=== PATIENT | male | born 2000 | race Caucasian/White ===

== ENCOUNTER 2019-10-19 13:02 | Emergency (ER) | payer BC ==
[2019-10-19 13:39] VITALS: BP 104/55
--- NOTE | 2019-10-19 14:23 | UC ---
Back Pain HPI - HPI Summary HPI Summary: 19 [address][age] sebastian male, studnet, presetns with left sided back pain x 1 week, getting worse. Woke up Sunday morning, thought he "slept wrong", but continued to hurt and getting worse= worse with stepping on left leg/ lifting leg/ steps, getting out of bed. Better with lying down, sitting OK. no numbness/ tingling, no decrease in strength/ motor. no problems with urination, no drainage from penis. no fever, chills. no h/o kidney stones/ problems. + working out, did not work out prior to injury. no radiating pain. no lightheadedness/ dizziness. no prior injuries, trauma/ surgeries prior. no truama/ injruy this time. no headache. Regular bowels, no incontinence, no pain with defecation. Has tried 4-5 advil tablets throughout entire week for pain - History of Current Complaint Chief Complaint: UCBackPain Stated Complaint: BACK COMPLAINT Time Seen by Provider: 10/19/19 14:16 Hx Obtained From: Patient Onset/Duration: Sudden Onset, Lasting Weeks - 1 Timing: Constant Severity Initially: Moderate Severity Currently: Moderate Pain Intensity: 7 Pain Scale Used: 0-10 Numeric Back Pain: Is Discrete @ - left lower back Character: Sharp - with movement Aggravating Factor(s): Movement Alleviating Factor(s): Rest Associated Signs And Symptoms: Negative: Weakness, Numbness, Tingling, Abdominal Pain, Flank Pain, Bladder Incontinence, Bowel Incontinence - Allergies/Home Medications Allergies/Adverse Reactions: Allergies Allergy/AdvReac Type Severity Reaction Status Date / Time No Known Allergies Allergy Verified 10/19/19 13:36 Home Medications: Home Medications Cyclobenzaprine TAB* [Flexeril 10 MG TAB*] 10 mg PO TID PRN #10 tab 10/19/19 [Rx ] Naproxen [Naproxen 250 mg tab] 250 mg PO BID #15 tablet 10/19/19 [Rx] PMH/Surg Hx/FS Hx/Imm Hx Previously Healthy: Yes - Surgical History Surgical History: None - Family History Known Family History: Positive: Non-Contributory - Social History Alcohol Use: Occasionally Substance Use Type: None Smoking Status (MU): Never Smoked Tobacco Have You Smoked in the Last Year: No Review of Systems All Other Systems Reviewed And Are Negative: Yes Constitutional: Positive: Negative. Negative: Fever, Chills, Fatigue Skin: Positive: Negative Neurovascular: Positive: Negative Musculoskeletal: Positive: Arthralgia, Myalgia. Negative: Decreased ROM, Edema Neurological/Mental Status: Positive: Negative Psychological: Positive: Negative Is Patient Immunocompromised?: No Physical Exam Triage Information Reviewed: Yes Appearance: Well-Appearing, No Pain Distress, Well-Nourished Vital Signs: Initial Vital Signs Temp 97.7 F 10/19/19 13:34 Pulse 65 10/19/19 13:34 Resp 14 10/19/19 13:34 BP 104/55 10/19/19 13:34 Pulse Ox 100 10/19/19 13:34 Vital Signs Reviewed: Yes Eyes: Positive: Conjunctiva Clear Musculoskeletal Exam: Normal Musculoskeletal: Positive: Strength Intact - testing at hips, knees wtih full ROM, full strength. Decreased forward flexion due to pain at hips, to only ~ 70 degrees. pateller reflexes 2+ b/l, =. neg homans. + DF/PF + b/l. neg rhomberg. able to stand one foot b/l, heel up [place] b/l, heel/ toe without difficulty. TTP over left lumbar region, ? spinal over ~ L3 region, paraspinal on left. mild TTP over L SI joint. Neurological Exam: Normal Neurological: Positive: Alert, Muscle Tone Normal Psychological Exam: Normal Skin Exam: Normal Skin: Negative: Rashes - skin intact, no bruising/ erythema noted over painful region Back Pain Course/Dx - Course Course Of Treatment: Lumbar back strain: - Increase fluid intake while taking naproxen - Naproxen twice daily/ e mae 12 hours for 4 days to decrease inflammation, then as needed - Flexeril as needed for muscle spasms - School note for limited activities x 1 week - Follow up with Sports medicine if symptoms not improved within 2-3 days - Go to ER with numbness/ tingling, incontinence, decreased motor abilities. - Differential Dx/Diagnosis Differential Diagnosis/HQI/PQRI: Strain, Sprain Provider Diagnosis: Lumbago, Strain of tendon of lower back Discharge ED - Sign-Out/Discharge Documenting (check all that apply): Patient Departure All imaging exams completed and their final reports reviewed: Yes - Discharge Plan Condition: Good Disposition: HOME Prescriptions: Cyclobenzaprine TAB* [Flexeril 10 MG TAB*] 10 mg PO TID PRN #10 tab PRN Reason: muscle spasm Naproxen [Naproxen 250 mg tab] 250 mg PO BID #15 tablet Patient Education Materials: Low Back Strain (ED), Core Strengthening Exercises (GEN), Lower Back Exercises (ED) Forms: *School Release Referrals: No Primary Care Phys,NOPCP [Primary Care Provider] - [facility] [Outside] Yimi Valdes MD [Medical Doctor] - Additional Instructions: - Increase fluid intake while taking naproxen - Naproxen twice daily/ e mae 12 hours for 4 days to decrease inflammation, then as needed - Flexeril as needed for muscle spasms - School note for limited activities x 1 week - Follow up with Sports medicine if symptoms not improved within 2-3 days - Go to ER with numbness/ tingling, incontinence, decreased motor abilities. - Billing Disposition and Condition Condition: GOOD Disposition: Home
== END 2019-10-19 15:22 | disposition home or self-care (01) ==
LOC: UCCORT 13:02
DX: S39.012A Strain of muscle, fascia and tendon of lower back, initial encounter (principal); X58.XXXA Exposure to other specified factors, initial encounter; Y92.9 Unspecified place or not applicable; M54.5 Low back pain
CPT/HCPCS: 72110; 99202; G0463